=== PATIENT | male | born 1960 | race Caucasian/White ===

== ENCOUNTER → 2023-07-12 07:42 | Outpatient (REF) | payer OTHER, SELFPAY | LOC: DHCBC/DCA 07:42 | PROVIDERS: ATTENDING PHYSICIAN Internal Medicine Cardiovascular Disease; FAMILY PHYSICIAN Family Medicine | DX: R07.9 Chest pain, unspecified (principal) | CPT/HCPCS: 78452; 93017; A9500 ==

== ENCOUNTER 2024-08-17 14:39 | Emergency (ER) | payer OTHER, SELFPAY ==
[2024-08-17 14:45] VITALS: BP 131/75
[2024-08-17 14:59] LABS: % Basophils 1.2 % (0-2); % Eosinophils 4.3 % (0-6); % Immature Granulocytes 0.1 % (0-0.5); % Lymphocytes 25.4 % (20.5-51.1); % Monocytes 9.7 % (1.7-9.3); % Neutrophils 59.3 % (42.2-75.2); Absolute Basophils 0.1 10^3/uL (0-0.2); Absolute Eosinophils 0.4 10^3/uL (0-0.7); Absolute Lymphocytes 2.1 10^3/uL (1.2-3.4); Absolute Monocytes 0.8 10^3/uL (0.1-0.6); Absolute Neutrophils 4.8 10^3/uL (1.4-6.5); Hematocrit 42.6 % (39.0-52.0); Hemoglobin 15.4 g/dL (13.0-18.0); Mean Corp Hgb Conc. 36.2 g/dL (33.0-37.0); Mean Corpuscular Hgb 30.9 pg (27.0-31.0); Mean Corpuscular Volume 85.5 fL (80.0-94.0); Mean Platelet Volume 10.7 fL (7.4-10.4); Nucleated Red Blood Cells % 0 % (-); Platelet Count 191 10^3/uL (130-400); Red Blood Cell Count 4.98 10^6/uL (4.70-6.10); Red Cell Dist. Width 12.3 % (11.5-14.5); White Blood Cell Count 8.1 10^3/uL (4.8-10.8)
[2024-08-17 15:29] LABS: Blood Urea Nitrogen 19 mg/dl (9-20); Carbon Dioxide 22 mmol/L (22-30); Chloride 108 mmol/L (98-107); Glucose 90 mg/dl (70-99); Sodium 142 mmol/L (135-145); eGFR > 60.00
[2024-08-17 15:36] LABS: Troponin I < 0.012 ng/ml
[2024-08-17 16:49] VITALS: BP 119/79
--- NOTE | 2024-08-17 17:01 | ED.GENMED ---
History of Present Illness
General
Chief Complaint: Chest Pain
Source: patient and spouse
Time Seen by Provider: 08/17/24 16:33
History of Present Illness
History of Present Illness:
This patient is a 64-year-old male who states that throughout the week he has had chest 'discomfort' on and off throughout the day. He is unable to define specifically how long it lasts says he notices it and then he just 'gets busy', and does not
notice it anymore. He denies a pleuritic component to this, and is not specifically exertional, or associated with diaphoresis, nausea, vomiting, dyspnea. Sometimes he also feels it in his left lower back area. Today, he got concerned because he
felt a 'jolt' of pain lasting 1 to 2 seconds and then resolving completely. This did not involve his back but rather just his chest. This has fully resolved, and he denies symptoms at this time. He denies dyspnea, diaphoresis, nausea, vomiting,
neck pain, jaw pain, headache, dizziness, abdominal pain, leg swelling, or other complaints. Patient has a history of CAD/CABG and sees his doctor regularly.
Past History
Past History
ED Past Medical History: CAD, GERD and Hypercholesterolemia
ED Past Surgical History: Cardiac and Orthopedic
Social History
Tobacco: Non-smoker
Alcohol: Occasional
Drug: None
Personal:
Living: with family
Phy Exam
Physical Exam
Physical Exam:
GENERAL: Alert , in no apparent distress
EYE: pupils equal and reactive
NECK: Supple, no significant adenopathy.
ENT: o/p clr, mmm.
CARDIAC: Regular rate and rhythm .
LUNGS: Clear breath sounds bilaterally, no acute respiratory distress, no wheezes/rales/rhonchi
ABDOMEN: Soft, without focal tenderness, no r/g, no cvat
NEUROLOGICAL: Alert and oriented, no focal neuro deficits
SKIN: Warm and dry, skin intact.
MUSCULOSKELETAL: No edema, well perfused.
PSYCH: Normal and appropriate interaction.
Scores
Heart Score for Chest Pain Patients
STEMI patient?: Not applicable
Course
Orders/Labs/Results
Orders:
Orders
08/17/24 14:39
Electrocardiogram (*1) Urgent
Reason for Study: Chest Pain
08/17/24 14:40
EKG- Treatment ONCE
08/17/24 14:52
Basic Metabolic Panel Urgent
Comment: BMP NO K
Complete Blood Count/With Diff Urgent
Troponin I Urgent
08/17/24 17:10
CR Chest - 2 Views Urgent
Comment:
Reason For Exam: cp
08/17/24 18:05
Troponin I Urgent
Abnormal Lab Results
08/17/24
14:52
MPV 10.7 H fL
(7.4-10.4)
Absolute Monos (auto) 0.8 H 10^3/uL
(0.1-0.6)
Monocytes % 9.7 H %
(1.7-9.3)
Chloride 108 H mmol/L
(98-107)
08/17/24 14:52
08/17/24 14:52
Vital Signs
Initial and Last Documented VS:
Initial Vital Signs
Temp Pulse Resp BP Pulse Ox
97.6 F 65 16 131/75 96
08/17/24 14:45 08/17/24 14:45 08/17/24 14:45 08/17/24 14:45 08/17/24 14:45
Last Documented Vital Signs
Temp Pulse Resp BP Pulse Ox
97.6 F 61 20 119/79 98
08/17/24 14:45 08/17/24 19:01 08/17/24 19:01 08/17/24 16:49 08/17/24 19:01
*Pulse Oximetry
SaO2: 98
Oxygen Mode of Delivery: Room air
*Critical Care Note
Total Time (30-74mins, 75-104mins- exclusive of procedures): Not Applicable
Update Note
Update Note:
Patient presents to the Emergency Department with ___chest pain
Number and Complexity of Problems Addressed at the Encounter
� Chronic conditions affecting care:
� Acute Exacerbation and/or Progression of Chronic Illness:
� Differential Diagnosis includes: But not limited to ACS, muscular pain, pleurisy, etc. etc.
Amount and/or Complexity of Data to be Reviewed and Analyzed
� I performed an independent evaluation of and my interpretation is:
EKG: Read by me, normal sinus rhythm, normal rate, normal axis, no acute ischemia
CT:
Xrays:Mild cardiomegaly.
2. Previous CABG surgery.
3. Mildly decreased bilateral lung volumes.
Laboratory Studies: Generally unremarkable
Other:
� Review of other/old records reveals: Admitted 2012 at that time chest pain not thought to be ischemic, EF 45%
� Clinical information was obtained by an independent historian: who is bedside
� Prescriptions/Medications Considered but not given:
� Further testing considered but not performed:
Risk of Complications and/or Morbidity or Mortality of Patient Management
� Social determinants of health affecting care:
� Discussion with other providers (PCP, Hospitalists, Consultants, etc):
� Escalation of care including admission/observation vs risk of discharge considered:
ED Attending Note
-
Portions of this chart may have been created with voice recognition software.� Occasional wrong word or��sound alike� substitutions may have occurred due to the inherent limitations of voice recognition software.
Discharge Plan
Departure
Patient Disposition: Home (Routine Discharge)
Date of Disposition: 08/17/24
Time of Disposition: 18:54
Patient with high blood pressure during this ER visit?: Yes
Condition: Good
Discharge Problem:
Chest pain
Instructions: Chest Pain DCA Follow Up
Prescriptions:
No Action
aspirin 81 MG tablet,delayed release (DR/EC)
81 mg PO DAILY
tamsulosin 0.4 MG capsule
0.4 mg PO HS
docosahexaenoic acid-epa 1 CAP capsule
1 cap PO DAILY
rosuvastatin [Crestor] 40 MG tablet
40 mg PO HS
cholecalciferol (vitamin D3) 2,000 UNITS tablet
2,000 units PO DAILY
multivitamin with folic acid [Tab-A-Kevin] 1 TABLET tablet
1 tab PO DAILY
Referrals:
Danny Gaona DO [Family Provider, Family Practice]
Vito Carvalho MD [Active, Cardiology] - Follow up in 2-3 days
Activity Restrictions/Additional Instructions:
IF YOU DEVELOP INCREASING NEW OR PERSISTENT PAIN, TROUBLE BREATHING, FEVER, VOMITING, OR OTHER WORRISOME SIGNS, PLEASE RETURN TO THE ER IMMEDIATELY!
Interventions
Interventions:
*Risk Screen - Suicide Last Done: 08/17/24 16:49
*General Assessment Last Done: 08/17/24 16:49
*Neglect/Abuse Screening Last Done: 08/17/24 16:49
*ED- Fall Risk Assessment Last Done: 08/17/24 16:49
*ED COVID-19 Vaccine History Last Done: 08/17/24 16:49
*Nursing Disposition Last Done: 08/17/24 19:12
ED- Cardiac Assessment Last Done: 08/17/24 16:49
Discharge Date and Time
Discharge Date/Time: 08/17/24 19:12
Print Language: UKRAINIAN
[2024-08-17 18:49] LABS: Troponin I < 0.012 ng/ml
== END 2024-08-17 19:12 | disposition home or self-care (01) ==
LOC: EMR 14:39
PROVIDERS: Emergency Medicine; EMERGENCY PHYSICIAN Emergency Medicine; FAMILY PHYSICIAN Family Medicine
DX: R07.9 Chest pain, unspecified (principal); I51.7 Cardiomegaly; E78.00 Pure hypercholesterolemia, unspecified; I25.10 Atherosclerotic heart disease of native coronary artery without angina pectoris; Z95.1 Presence of aortocoronary bypass graft
CPT/HCPCS: 99285; 71046; 80048; 84484; 85025; 93005

== ENCOUNTER → 2024-09-19 13:50 | Outpatient (REF) | payer OTHER, SELFPAY | LOC: RCS 13:50 | PROVIDERS: ATTENDING PHYSICIAN Physician Assistant; FAMILY PHYSICIAN Family Medicine | DX: R07.9 Chest pain, unspecified (principal); R06.02 Shortness of breath; I25.10 Atherosclerotic heart disease of native coronary artery without angina pectoris | CPT/HCPCS: 93306 ==